=== PATIENT | male | born 1950 | race Caucasian/White ===

== ENCOUNTER 2017-06-13 12:30 | Inpatient (IN) ==
[2017-06-13] MEDS ORDERED: D5% in Water 1,000 ML IVC PRN (22:35)
[2017-06-13] MEDS ORDERED: *HR* Dextrose 50 % in Water (Syg) 50 ML SYRINGE IVP PRN (22:35)
[2017-06-13] MEDS ORDERED: Dextrose Gel 15 GM/37.5 ML TUBE PO PRN ×2 (22:35)
[2017-06-14 05:30] LABS: Basophils % 0.3 %; Eosinophils # 0.3 K/mcL (0.0-0.6); Eosinophils % 4.5 %; Hematocrit 44.7 % (37.5-50.1); Hemoglobin 14.8 g/dL (12.9-16.9); Immature Granulocytes % 0.5 % (0-4); Lymphocytes # 0.9 K/mcL (0.6-4.6); Lymphocytes % 15.6 %; Mean Corpuscular HGB Conc 33.1 g/dL (31.6-35.5); Mean Corpuscular Hemoglobin 31.9 pg (28.0-33.3); Mean Corpuscular Volume 96.3 fL (83.0-100.0); Mean Platelet Volume 9.5 fL (9.4-12.4); Monocytes # 0.6 K/mcL (0.0-1.3); Monocytes % 10.9 %; Neutrophils # 3.9 K/mcL (1.6-8.9); Platelet Count 204 K/mcL (140-400); Red Blood Count 4.64 M/mcL (4.19-5.50); Red Cell Distribution Width 15.7 % (11.5-14.5); Segmented Neutrophils % 68.2 %
[2017-06-14 05:35] LABS: INR 1.9; Prothrombin Time 20.4 Seconds (9.4-12.1)
[2017-06-14 05:47] LABS: BUN/Creatinine Ratio 22 (6-26); Blood Urea Nitrogen 28 mg/dL (8-23); Calcium 8.8 mg/dL (8.6-10.3); Carbon Dioxide 26 mEq/L (23-29); Chloride 101 mEq/L (98-107); Glucose 102 mg/dL (70-105); Osmolality,Calculated 282 (280-300); Sodium 133 mEq/L (136-145); eGFR For African Americans > 60 (> 60); eGFR For Non-African Americans 57 (> 60)
[2017-06-14] MEDS: Insulin LISPRO 300 UNITS/3 ML VIAL SQ SCH ×4 (08:13→21:37)
[2017-06-14] MEDS: Spironolactone 25 MG TABLET PO SCH (11:03)
[2017-06-14] MEDS: Furosemide 40 MG TABLET PO SCH ×2 (11:03→21:36)
[2017-06-14] MEDS: *HR* Metformin 500 MG TABLET PO SCH ×2 (11:03→18:46)
[2017-06-14] MEDS: Cholecalciferol (D-3) 1,000 UNIT TABLET PO SCH (11:03)
[2017-06-14] MEDS: BETAXOLOL 0.25% OP SCH (11:04)
[2017-06-14] MEDS: Beclomethasone 80mcg MDI IH SCH ×2 (11:04→21:37)
--- NOTE | 2017-06-14 15:52 | Internal Med History&Physical ---
Date of Encounter: 06/14/17 Time of Encounter: 15:46 Assessment and Plan (1) Physical deconditioning Current visit: Yes Status: Acute PT/OT eval and treat. will follow progress. (2) CHF (congestive heart failure) Current visit: Yes Status: Acute echo on 11/21/14 showed LVEF of 15-20%. continue O2 per NC as needed. continue current meds, monitor for decompensation. stable at this time. Qualifiers: Heart failure type: systolic Heart failure chronicity: acute Qualified Code(s): I50.21 - Acute systolic (congestive) heart failure (3) CKD (chronic kidney disease) stage 3, GFR 30-59 ml/min Current visit: Yes Status: Chronic monitor labs and avoid nephrotoxins. (4) Atrial fibrillation Current visit: Yes Status: Chronic rate and rythm stable. has pacemaker/AICD, replaced on 05/18/17. continue coumadin. will monitor INR> Qualifiers: Atrial fibrillation type: chronic Qualified Code(s): I48.2 - Chronic atrial fibrillation (5) Presence of cardiac pacemaker Current visit: Yes Status: Chronic replaced on 05/18/17 when AV node ablation was performed. (6) HTN (hypertension) Current visit: Yes Status: Chronic stable and controlled with current meds. monitor BP. Qualifiers: Hypertension type: essential hypertension Qualified Code(s): I10 - Essential (primary) hypertension (7) Diabetes mellitus type II, uncontrolled Current visit: Yes Status: Acute continue metformin and insulin. monitor FSBS. Qualifiers: Diabetes mellitus alf insulin use: without terminal carman use Diabetes mellitus complication status: without complication Qualified Code(s): E11.65 - Type 2 diabetes mellitus with hyperglycemia Internal Medicine - H&P: HPI Admitted From: Intrahospital Transfer Plans for Post Hospital Care: Home History of present illness: Mr. Neves is a 67 year old male admitted to rehab unit from [facility] for deconditioning after CHF exacerbation 2 weeks post ablation. PMHx of a fib, cardiomyopathy, optic atrophy, CHF, diabetes, hyperlipidemia , hypertension, kidney stones, CKD and thyroid disease. denies SOB or chest pain. no other complaints at this time. 2 weeks [address] followed by Dr Mandujano for cardiology. EF 15-20%. has pacemaker/AICD. plans to discharge to assisted living facility. Past Med Surg Social Fam HX - Past Medical History Medical history: atrial fibrillation, cardiomyopathy, CHF, diabetes, hyperlipidemia, hypertension, kidney stones, renal disease, thyroid disease Psychiatric history: no psych history - Past Surgical History Surgical History: pacemaker/AICD - Social History Smoking Status: Never smoker Smokeless Tobacco Status: No Alcohol use: occasionally Drug use: none - Family History Mother Adopted: No Family Member Ethnicity: Non- Living Status: Age at : 85 Cause of : IA Hx Family Cardiac Disorders: Yes Hx Family Respiratory Disorders: No Hx Family Cancer: No Hx Family GI Disorders: No Hx Family Endocrine Disorder: No Hx Family Neuromuscular Disorders: No Hx Family Neurologic Disorders: Yes (Alzheimer's disease) Hx Family HEENT Disorders: No Hx Family Autoimmune Disorders: Yes Father Family Member Ethnicity: Non- Living Status: Age at : 84 Cause of : Dementia Hx Family Cardiac Disorders: Yes (CVA, IA) Hx Family Respiratory Disorders: No Hx Family Cancer: No Hx Family GI Disorders: No Hx Family Endocrine Disorder: Yes Hx Family Neuromuscular Disorders: No Hx Family Neurologic Disorders: No Hx Family HEENT Disorders: Yes Hx Family Autoimmune Disorders: No Internal Medicine - H&P: Meds Albuterol Sulfate [Albuterol Inhaler] 2 puff IH Q4HR PRN 11/21/14 [History] Allopurinol [Zyloprim] 100 mg PO QPM 11/21/14 [History] Beclomethasone Diprop 80mcg [QVAR 80 mcg] 1 puff IH BIDR 11/21/14 [History] Cyanocobalamin (Vitamin B-12) [Vitamin B12] 1,000 mcg PO TH 11/21/14 [History] Levothyroxine [Synthroid] 112 mcg PO QAM 11/21/14 [History] Spironolactone [Aldactone] 25 mg PO DAILY 11/21/14 [History] Warfarin [Coumadin] 2.5 mg PO QPM 11/21/14 [History] Betaxolol 0.25% [Betoptic S] 1 drop BOTH EYES QAM 04/27/15 [History] Travoprost [Travatan Z] 1 drop BOTH EYES HS 04/27/15 [History] Furosemide [Lasix] 40 mg PO BID #60 04/29/15 [Rx] Cholecalciferol (Vitamin D3) [Vitamin D3] 5,000 unit PO DAILY 05/18/17 [History] Atorvastatin [Lipitor] 40 mg PO QPM 06/04/17 [History] Sacubitril/Valsartan 24/26 mg [Entresto 24 mg-26 mg Tablet] 1 tab PO BID #60 tablet 06/13/17 [Rx] 3 Allergy/AdvReac Type Severity Reaction Status Date / Time aspirin [ASA] Allergy See Verified 06/08/17 09:25 Comments Penicillins Allergy See Verified 06/08/17 09:25 Comments Tetracycline Allergy See Verified 06/08/17 09:25 Comments vancomycin Allergy See Verified 06/08/17 09:25 Comments hydrochlorothiazide AdvReac Rash Verified 06/08/17 09:25 NSAIDS (Non-Steroidal AdvReac See Verified 06/08/17 09:25 Anti-Inflamma Comments All Systems PM: A 10-system review of systems was performed and is negative for pertinent findings except as documented above in the HPI. - Constitutional Constitutional: no chills, no fever(s), no night sweats - EENT Eyes: loss of vision, no change in vision, no discharge, no pain, no photophobia Additional comments: hx of chronic optic atrophy. limited vision. no worse at this time. Ears: no ear discharge, no ear pain, no tinnitus Nose, mouth and throat: no dysphagia, no nasal discharge, no neck pain, no sore throat - Cardiovascular Cardiovascular ROS IM: no chest pain, no diaphoresis, no dyspnea, no lightheadedness, no palpitations, no syncope - Respiratory Respiratory: no cough, no dyspnea, no wheezing, no excessive phlegm production - Gastrointestinal Gastrointestinal: no abdominal pain, no diarrhea, no hematemesis, no hematochezia, no melena, no nausea, no vomiting - Musculoskeletal Musculoskeletal ROS IM: no numbness, no tingling - Integumentary Integumentary IM: no rash, no unusual bruising - Neurological Neurological ROS: no confusion, no convulsions, no focal weakness, no numbness, no tingling, no tremor(s) - Hematologic/Lymphatic Hematologic/Lymphatic: no easy bruising - Constitutional Vitals: Temp Pulse Resp BP Pulse Ox 97.8 F 71 14 90/65 97 06/14/17 08:00 06/14/17 12:00 06/14/17 12:00 06/14/17 12:00 06/14/17 12:00 General appearance: Present: A&O X 3, pleasant, no acute distress, answers questions appropriately - Head Head exam: Present: atraumatic, normocephalic - Eye Eye exam: Present: PERRL, conjuntiva pink, sclera anicteric Pupils: Present: PERRL - Neck Neck exam general surgery: Present: supple, trachea midline. Absent: lymphadenopathy - Respiratory Respiratory exam: Present: CTAB. Absent: accessory muscle use, rales, rhonchi, wheezes - Cardiovascular Cardiovascular exam: Present: RRR, +S1, +S2. Absent: diastolic murmur, gallop, rubs, systolic murmur - GI/Abdominal GI/Abdominal exam: Present: normal bowel sounds, soft, no peritoneal signs. Absent: distended, tenderness - Extremities Exam Extremities exam: Present: warm, radial pulses palpable and symmetrical. Absent : calf tenderness, cyanotic, pedal edema - Neurological Exam Neurological exam: Present: CN II-XII intact, oriented X3, no focal deficits. Absent: pronater drift, facial droop, speech deficit - Skin Skin exam: Present: dry, intact Internal Med - H&P Results - Labs CBC & Chem 7: 06/14/17 05:15 06/14/17 05:15 Labs: Short CBC 06/14/17 Range/Units 05:15 WBC 5.8 (4.3-11.1) K/mcL Hgb 14.8 (12.9-16.9) g/dL Hct 44.7 (37.5-50.1) % Plt Count 204 (140-400) K/mcL Neutrophils # 3.9 (1.6-8.9) K/mcL BMP 06/14/17 05:15 Sodium 133 L Potassium 4.0 Chloride 101 Carbon Dioxide 26 BUN 28 H Creatinine 1.26 Glucose 102 Calcium 8.8
[2017-06-14] MEDS: SACUBITRIL/VALSARTAN 24/26 MG TABLET PO SCH ×2 (18:46→21:36)
[2017-06-14] MEDS: Latanoprost 2.5 ML BOTTLE BOTH EYES SCH (21:36)
[2017-06-14] MEDS: *HR* Warfarin 2.5 MG TABLET PO SCH (22:45)
[2017-06-15 06:56] LABS: INR 1.9; Prothrombin Time 20.3 Seconds (9.4-12.1)
[2017-06-15] MEDS: Insulin LISPRO 300 UNITS/3 ML VIAL SQ SCH ×4 (08:04→20:56)
[2017-06-15] MEDS: Furosemide 40 MG TABLET PO SCH ×2 (09:18→21:15)
[2017-06-15] MEDS: Beclomethasone 80mcg MDI IH SCH ×2 (09:19→21:16)
[2017-06-15] MEDS: Spironolactone 25 MG TABLET PO SCH (09:19)
[2017-06-15] MEDS: Cholecalciferol (D-3) 1,000 UNIT TABLET PO SCH (09:19)
[2017-06-15] MEDS: *HR* Metformin 500 MG TABLET PO SCH ×2 (09:19→16:53)
[2017-06-15] MEDS: SACUBITRIL/VALSARTAN 24/26 MG TABLET PO SCH ×2 (09:20→21:15)
[2017-06-15] MEDS: BETAXOLOL 0.25% OP SCH (09:21)
[2017-06-15] MEDS: Cyanocobalamin (B-12) 1,000 MCG TABLET PO SCH (09:27)
--- NOTE | 2017-06-15 14:03 | Internal Med Progress Note ---
Date of Encounter: 06/15/17 Time of Encounter: 14:00 - Assessment and plan (1) Physical deconditioning Current Visit: Yes Status: Acute Assessment and plan: continue PT/OT as scheduled. will follow progress. (2) CHF (congestive heart failure) Current Visit: Yes Status: Acute Assessment and plan: continue current meds. stable at this time. Qualifiers: Heart failure type: systolic Heart failure chronicity: acute Qualified Code(s): I50.21 - Acute systolic (congestive) heart failure (3) CKD (chronic kidney disease) stage 3, GFR 30-59 ml/min Current Visit: Yes Status: Chronic Assessment and plan: monitor labs. (4) Atrial fibrillation Current Visit: Yes Status: Chronic Assessment and plan: rate and rhythm controlled. has pacemaker. Qualifiers: Atrial fibrillation type: chronic Qualified Code(s): I48.2 - Chronic atrial fibrillation (5) Presence of cardiac pacemaker Current Visit: Yes Status: Chronic Assessment and plan: monitor (6) HTN (hypertension) Current Visit: Yes Status: Chronic Assessment and plan: controlled with current meds. monitor BP. Qualifiers: Hypertension type: essential hypertension Qualified Code(s): I10 - Essential (primary) hypertension - Time Spent With Patient less than 15 minutes - Subjective Interval history: participating in therapy. ambulating in hallway with walker with PT. denies SOB, wearing O2, maintaining sats of 96% with 2 liters. denies chest pain. bowel movement this am. - Constitutional Vitals: Temp Pulse Resp BP Pulse Ox 97.7 F 79 16 93/57 96 06/15/17 07:15 06/15/17 07:15 06/15/17 07:15 06/15/17 07:15 06/15/17 07:15 General appearance: Present: A&O X 3, pleasant, no acute distress, answers questions appropriately - Head Head exam: Present: atraumatic, normocephalic - Eye Eye exam: Present: PERRL, conjuntiva pink, sclera anicteric Pupils: Present: PERRL - Neck Neck exam general surgery: Present: supple, trachea midline. Absent: lymphadenopathy - Respiratory Respiratory exam: Present: CTAB. Absent: accessory muscle use, rales, rhonchi, wheezes - Cardiovascular Cardiovascular exam: Present: RRR, +S1, +S2. Absent: diastolic murmur, gallop, rubs, systolic murmur Additional comments: has pacemaker - GI/Abdominal GI/Abdominal exam: Present: normal bowel sounds, soft, no peritoneal signs. Absent: distended, tenderness - Extremities Exam Extremities exam: Present: warm, radial pulses palpable and symmetrical. Absent : calf tenderness, cyanotic, pedal edema - Neurological Exam Neurological exam: Present: CN II-XII intact, oriented X3, no focal deficits. Absent: pronater drift, facial droop, speech deficit - Skin Skin exam: Present: dry, intact Internal Medicine: Result - Labs CBC & Chem 7: 06/14/17 05:15 06/14/17 05:15 - ABG Interpretation ABG results: PT/INR, D-dimer PT 20.3 Seconds (9.4-12.1) H 06/15/17 06:27 Consult Discharge Plan - Plan Referrals: Shayla Bolanos DO [Primary Care Provider] -
[2017-06-15] MEDS: *HR* Warfarin 2.5 MG TABLET PO SCH (16:53)
[2017-06-15] MEDS: Latanoprost 2.5 ML BOTTLE BOTH EYES SCH (21:15)
[2017-06-16 05:41] LABS: INR 1.8; Prothrombin Time 19.4 Seconds (9.4-12.1)
[2017-06-16] MEDS: Insulin LISPRO 300 UNITS/3 ML VIAL SQ SCH ×4 (08:32→20:38)
[2017-06-16] MEDS: Spironolactone 25 MG TABLET PO SCH (11:40)
[2017-06-16] MEDS: Cholecalciferol (D-3) 1,000 UNIT TABLET PO SCH (11:40)
[2017-06-16] MEDS: SACUBITRIL/VALSARTAN 24/26 MG TABLET PO SCH ×2 (11:40→20:41)
[2017-06-16] MEDS: *HR* Metformin 500 MG TABLET PO SCH ×2 (11:40→18:18)
[2017-06-16] MEDS: Furosemide 40 MG TABLET PO SCH ×2 (11:40→20:41)
[2017-06-16] MEDS: BETAXOLOL 0.25% OP SCH (11:42)
[2017-06-16] MEDS: Beclomethasone 80mcg MDI IH SCH ×2 (11:44→20:42)
--- NOTE | 2017-06-16 12:37 | Internal Med Progress Note ---
Date of Encounter: 06/16/17 Time of Encounter: 12:34 - Assessment and plan (1) CHF (congestive heart failure) Current Visit: Yes Status: Acute Assessment and plan: No acute issues. Patient denies any current dyspnea or palpitations. Patient continues to physical therapy has been progressing well. Continues with irregular heart rate due to atrial fibrillation but controlled rate less than 100. We will continue his current medications and plan of care. Qualifiers: Heart failure type: systolic Heart failure chronicity: acute Qualified Code(s): I50.21 - Acute systolic (congestive) heart failure (2) CKD (chronic kidney disease) stage 3, GFR 30-59 ml/min Current Visit: Yes Status: Chronic Assessment and plan: No acute issues. Patient's most recent creatinine was 1.26. We will continue to monitor with serial labs. (3) Diabetes mellitus type II, uncontrolled Current Visit: Yes Status: Acute Assessment and plan: No acute issues. Patient glucose has been well controlled with SSI coverage. We will continue with scheduled medications Qualifiers: Diabetes mellitus detention insulin use: without detention use Diabetes mellitus complication status: without complication Qualified Code(s): E11.65 - Type 2 diabetes mellitus with hyperglycemia - Time Spent With Patient less than 15 minutes - Subjective Interval history: Patient appears Roberto currently denies any shortness of breath was discomforts. Patient denies any palpitations. States that physical therapy has been doing well that he feels like he is progressing well. - Constitutional Vitals: Temp Pulse Resp BP Pulse Ox 97.7 F 80 16 99/69 95 06/16/17 09:00 06/16/17 09:00 06/16/17 09:00 06/16/17 09:00 06/16/17 09:00 General appearance: Present: A&O X 3, pleasant, no acute distress, answers questions appropriately - Head Head exam: Present: atraumatic, normocephalic - Eye Eye exam: Present: PERRL, conjuntiva pink, sclera anicteric Pupils: Present: PERRL - Neck Neck exam general surgery: Present: supple, trachea midline. Absent: lymphadenopathy - Respiratory Respiratory exam: Present: CTAB. Absent: accessory muscle use, rales, rhonchi, wheezes Additional comments: Lungs are clear throughout upper parish and diminished to basilar parish. Respiratory effort appears relaxed. Oximetry greater than 90% on 2 L. - Cardiovascular Cardiovascular exam: Present: RRR, +S1, +S2. Absent: diastolic murmur, gallop, rubs, systolic murmur Additional comments: Noted soft systolic murmur to left sternal border. 04/04 - GI/Abdominal GI/Abdominal exam: Present: normal bowel sounds, soft, no peritoneal signs. Absent: distended, tenderness - Extremities Exam Extremities exam: Present: warm, radial pulses palpable and symmetrical. Absent : calf tenderness, cyanotic, pedal edema - Neurological Exam Neurological exam: Present: CN II-XII intact, oriented X3, no focal deficits. Absent: pronater drift, facial droop, speech deficit - Skin Skin exam: Present: dry, intact Internal Medicine: Result - Labs CBC & Chem 7: 06/14/17 05:15 06/14/17 05:15 - ABG Interpretation ABG results: PT/INR, D-dimer PT 19.4 Seconds (9.4-12.1) H 06/16/17 05:15 Consult Discharge Plan - Plan Referrals: Shayla Bolanos DO [Primary Care Provider] -
[2017-06-16] MEDS: *HR* Warfarin 2.5 MG TABLET PO SCH (18:18)
[2017-06-16] MEDS: Latanoprost 2.5 ML BOTTLE BOTH EYES SCH (20:41)
[2017-06-17 05:20] LABS: INR 1.6; Prothrombin Time 17.9 Seconds (9.4-12.1)
[2017-06-17] MEDS: Insulin LISPRO 300 UNITS/3 ML VIAL SQ SCH ×4 (07:47→21:00)
[2017-06-17] MEDS: Spironolactone 25 MG TABLET PO SCH (07:48)
[2017-06-17] MEDS: *HR* Metformin 500 MG TABLET PO SCH ×2 (07:48→16:47)
[2017-06-17] MEDS: Cholecalciferol (D-3) 1,000 UNIT TABLET PO SCH (07:48)
[2017-06-17] MEDS: SACUBITRIL/VALSARTAN 24/26 MG TABLET PO SCH ×2 (07:48→21:10)
[2017-06-17] MEDS: Furosemide 40 MG TABLET PO SCH ×2 (07:48→21:10)
[2017-06-17] MEDS: BETAXOLOL 0.25% OP SCH (07:51)
[2017-06-17] MEDS: Beclomethasone 80mcg MDI IH SCH ×2 (08:03→21:11)
--- NOTE | 2017-06-17 09:59 | Internal Med Progress Note ---
Date of Encounter: 06/17/17 Time of Encounter: 09:57 - Assessment and plan (1) Acute exacerbation of CHF (congestive heart failure) Current Visit: No Status: Acute Assessment and plan: Acute exacerbation of systolic heart Failure. His EF per record is very low around 15-20 % . He is on lasix clinically looks better his Lasix needed to be decreased due to low BP last night . I'll need to continue to monitor and if possible if his Blood pressure tolerates a small dose of Nate could be added . At the present time he si clinically stable and denies any acute issues or SOB Qualifiers: Heart failure type: systolic Qualified Code(s): I50.23 - Acute on chronic systolic (congestive) heart failure (2) Cardiomyopathy Current Visit: No Status: Chronic Assessment and plan: Same as above . Adjust his meds if he can tolerate Qualifiers: Cardiomyopathy type: other Qualified Code(s): I42.8 - Other cardiomyopathies (3) CKD (chronic kidney disease) stage 3, GFR 30-59 ml/min Current Visit: Yes Status: Resolved Assessment and plan: last labs seems to be within normal range needs to continue to followup his renal function (4) Atrial fibrillation Current Visit: Yes Status: Chronic Assessment and plan: has pacemaker rate is stable .on warfarin INR is low increase his dose Qualifiers: Atrial fibrillation type: chronic Qualified Code(s): I48.2 - Chronic atrial fibrillation - Subjective Interval history: no acute issues today breathing is some what baseline no dizzyness no Chest pain nausea or vomting or any other complains . His BP had been running some what low lately on lasix and Aldactone only - Constitutional Vitals: Temp Pulse Resp BP Pulse Ox 97.8 F 79 18 106/66 95 06/17/17 07:23 06/17/17 07:23 06/17/17 07:23 06/17/17 07:23 06/17/17 07:23 General appearance: Present: A&O X 3, pleasant, no acute distress, answers questions appropriately - Head Head exam: Present: atraumatic - Eye Eye exam: Present: EOMI, PERRL - Neck Neck exam general surgery: Present: supple Additional comments: no JVD or HJR - Respiratory Respiratory exam: Absent: respiratory distress, rhonchi, wheezes, tachypnea Additional comments: Mild crackles bases both sides otherwise air entry equal both sides - Cardiovascular Cardiovascular exam: Present: irregular rhythm, +S1, +S2, systolic murmur. Absent: JVD Additional comments: soft systolic mummer - GI/Abdominal GI/Abdominal exam: Present: normal bowel sounds, soft. Absent: distended, firm , guarding, mass, tenderness Additional comments: obese - Extremities Exam Extremities exam: Present: pedal edema Additional comments: + both sides - Neurological Exam Neurological exam: Present: CN II-XII intact, oriented X3, no focal deficits. Absent: facial droop, speech deficit Internal Medicine: Result - Labs CBC & Chem 7: 06/14/17 05:15 06/14/17 05:15 - ABG Interpretation ABG results: PT/INR, D-dimer PT 17.9 Seconds (9.4-12.1) H 06/17/17 05:03 Consult Discharge Plan - Plan Referrals: Shayla Bolanos DO [Primary Care Provider] -
[2017-06-17] MEDS ORDERED: *HR* Warfarin 2.5 MG TABLET PO SCH (10:06)
[2017-06-17] MEDS: Latanoprost 2.5 ML BOTTLE BOTH EYES SCH (21:11)
[2017-06-18 05:22] LABS: INR 1.8; Prothrombin Time 19.8 Seconds (9.4-12.1)
[2017-06-18 05:33] LABS: BUN/Creatinine Ratio 19 (6-26); Blood Urea Nitrogen 24 mg/dL (8-23); Calcium 8.7 mg/dL (8.6-10.3); Carbon Dioxide 21 mEq/L (23-29); Chloride 102 mEq/L (98-107); Glucose 100 mg/dL (70-105); Osmolality,Calculated 280 (280-300); Potassium 4.2 mEq/L (3.5-5.1); Sodium 133 mEq/L (136-145); eGFR For African Americans > 60 (> 60); eGFR For Non-African Americans 57 (> 60)
[2017-06-18] MEDS: Insulin LISPRO 300 UNITS/3 ML VIAL SQ SCH ×4 (07:26→21:22)
[2017-06-18] MEDS: Furosemide 40 MG TABLET PO SCH ×2 (07:28→21:22)
[2017-06-18] MEDS: SACUBITRIL/VALSARTAN 24/26 MG TABLET PO SCH ×2 (07:28→21:23)
[2017-06-18] MEDS: *HR* Metformin 500 MG TABLET PO SCH ×2 (07:28→16:55)
[2017-06-18] MEDS: Spironolactone 25 MG TABLET PO SCH (07:28)
[2017-06-18] MEDS: Cholecalciferol (D-3) 1,000 UNIT TABLET PO SCH (07:28)
[2017-06-18] MEDS: BETAXOLOL 0.25% OP SCH (07:28)
--- NOTE | 2017-06-18 09:02 | Internal Med Progress Note ---
Date of Encounter: 06/18/17 Time of Encounter: 09:01 - Assessment and plan (1) Acute exacerbation of CHF (congestive heart failure) Current Visit: No Status: Acute Assessment and plan: Doing better he has lost about 2 KG since his admission . BP is holding better still on BID dose and IVONNE etc continue to adjust meds as tolerated. Overall doing better . As his weight decreases consider decreasing his Lasix and adding small dose of beta blockers if he can tolerate Qualifiers: Heart failure type: systolic Qualified Code(s): I50.23 - Acute on chronic systolic (congestive) heart failure (2) Cardiomyopathy Current Visit: No Status: Acute Assessment and plan: As above on multiple meds His creatinine has decreased little bit . Continue present meds Qualifiers: Cardiomyopathy type: other Qualified Code(s): I42.8 - Other cardiomyopathies (3) CKD (chronic kidney disease) stage 3, GFR 30-59 ml/min Current Visit: Yes Status: Chronic Assessment and plan: Stable Creatinine is 1.25 improving slowly (4) Atrial fibrillation Current Visit: Yes Status: Chronic Assessment and plan: rate is stable Has a pacemaker and a defibrillator . Warfarin dose was increased needs followup INR improving INR now to 1.8 No change in dose .On 3 mg warfarin Qualifiers: Atrial fibrillation type: chronic Qualified Code(s): I48.2 - Chronic atrial fibrillation - Time Spent With Patient 25 - 35 minutes - Subjective Interval history: He seems to be doing much better then before able to sleep through the night . His breathing is baseline no . He is not dizziness BP seems to be holding better - Constitutional Vitals: Temp Pulse Resp BP Pulse Ox 97.4 F L 79 16 103/43 97 06/18/17 07:45 06/18/17 07:45 06/18/17 07:45 06/18/17 07:45 06/18/17 07:45 General appearance: Present: A&O X 3, pleasant, no acute distress, answers questions appropriately - Head Head exam: Present: atraumatic - Eye Eye exam: Present: EOMI, PERRL - Neck Neck exam general surgery: Absent: tenderness, nuchal rigidity Additional comments: HJR is mildly positive no JVD - Respiratory Respiratory exam: Present: CTAB. Absent: chest wall tenderness, decreased breath sounds, respiratory distress, rhonchi, stridor, wheezes, tachypnea - Cardiovascular Cardiovascular exam: Present: irregular rhythm, +S1, +S2 - GI/Abdominal GI/Abdominal exam: Present: normal bowel sounds, soft. Absent: rebound, rigid Additional comments: obese abdomen - Extremities Exam Extremities exam: Absent: pedal edema, tenderness - Neurological Exam Neurological exam: Present: alert, CN II-XII intact, oriented X3, no focal deficits, strengths equal and symetr throughout. Absent: facial droop, speech deficit Internal Medicine: Result - Labs CBC & Chem 7: 06/14/17 05:15 06/18/17 04:33 Labs: BMP 06/18/17 04:33 Sodium 133 L Potassium 4.2 Chloride 102 Carbon Dioxide 21 L BUN 24 H Creatinine 1.25 Glucose 100 Calcium 8.7 - ABG Interpretation ABG results: PT/INR, D-dimer PT 19.8 Seconds (9.4-12.1) H 06/18/17 04:33 Consult Discharge Plan - Plan Referrals: Shayla Bolanos DO [Primary Care Provider] -
[2017-06-18] MEDS: Beclomethasone 80mcg MDI IH SCH ×2 (11:40→21:22)
[2017-06-18] MEDS ORDERED: Sennosides 8.6 MG TABLET PO PRN (15:56)
[2017-06-18] MEDS: *HR* Warfarin 3 MG TABLET PO SCH (16:55)
[2017-06-18] MEDS: Latanoprost 2.5 ML BOTTLE BOTH EYES SCH (21:21)
[2017-06-19 05:15] LABS: INR 1.9; Prothrombin Time 20.3 Seconds (9.4-12.1)
[2017-06-19] MEDS: Insulin LISPRO 300 UNITS/3 ML VIAL SQ SCH ×4 (07:45→20:37)
--- NOTE | 2017-06-19 10:07 | Internal Med Progress Note ---
Date of Encounter: 06/19/17 Time of Encounter: 10:05 - Assessment and plan (1) CHF (congestive heart failure) Current Visit: Yes Status: Acute Assessment and plan: No acute issues. Patient denies any current dyspnea or palpitations. Patient continues to physical therapy has been progressing well. Continues with irregular heart rate due to atrial fibrillation but controlled rate less than 100. We will continue his current medications and plan of care. Qualifiers: Heart failure type: systolic Heart failure chronicity: acute Qualified Code(s): I50.21 - Acute systolic (congestive) heart failure (2) CKD (chronic kidney disease) stage 3, GFR 30-59 ml/min Current Visit: Yes Status: Chronic Assessment and plan: No acute issues. Patient's most recent creatinine was 1.25. We will continue to monitor with serial labs. (3) Diabetes mellitus type II, uncontrolled Current Visit: Yes Status: Acute Assessment and plan: No acute issues. Patient glucose has been well controlled with SSI coverage. We will continue with scheduled medications Qualifiers: Diabetes mellitus jail insulin use: without jail use Diabetes mellitus complication status: without complication Qualified Code(s): E11.65 - Type 2 diabetes mellitus with hyperglycemia - Time Spent With Patient less than 15 minutes - Subjective Interval history: Patient appears relaxed and currently denies any shortness of breath was discomforts. Patient denies any palpitations. States that physical therapy has been doing well that he feels like he is progressing well. - Constitutional Vitals: Temp Pulse Resp BP Pulse Ox 98.4 F 86 18 110/73 94 06/19/17 07:04 06/19/17 07:04 06/19/17 07:04 06/19/17 07:04 06/19/17 07:04 General appearance: Present: A&O X 3, pleasant, no acute distress, answers questions appropriately - Head Head exam: Present: atraumatic, normocephalic - Eye Eye exam: Present: PERRL, conjuntiva pink, sclera anicteric Pupils: Present: PERRL - Neck Neck exam general surgery: Present: supple, trachea midline. Absent: lymphadenopathy - Respiratory Respiratory exam: Present: CTAB. Absent: accessory muscle use, rales, rhonchi, wheezes - Cardiovascular Cardiovascular exam: Present: RRR, +S1, +S2. Absent: diastolic murmur, gallop, rubs, systolic murmur - GI/Abdominal GI/Abdominal exam: Present: normal bowel sounds, soft, no peritoneal signs. Absent: distended, tenderness - Extremities Exam Extremities exam: Present: warm, radial pulses palpable and symmetrical. Absent : calf tenderness, cyanotic, pedal edema - Neurological Exam Neurological exam: Present: CN II-XII intact, oriented X3, no focal deficits. Absent: pronater drift, facial droop, speech deficit - Skin Skin exam: Present: dry, intact Internal Medicine: Result - Labs CBC & Chem 7: 06/14/17 05:15 06/18/17 04:33 - ABG Interpretation ABG results: PT/INR, D-dimer PT 20.3 Seconds (9.4-12.1) H 06/19/17 04:50 Consult Discharge Plan - Plan Referrals: Shayla Bolanos DO [Primary Care Provider] -
[2017-06-19] MEDS: Cholecalciferol (D-3) 1,000 UNIT TABLET PO SCH (10:28)
[2017-06-19] MEDS: SACUBITRIL/VALSARTAN 24/26 MG TABLET PO SCH ×2 (10:28→20:13)
[2017-06-19] MEDS: *HR* Metformin 500 MG TABLET PO SCH ×2 (10:29→19:09)
[2017-06-19] MEDS: Spironolactone 25 MG TABLET PO SCH (10:29)
[2017-06-19] MEDS: Furosemide 40 MG TABLET PO SCH ×2 (10:29→20:13)
[2017-06-19] MEDS: Beclomethasone 80mcg MDI IH SCH ×2 (12:28→20:14)
[2017-06-19] MEDS: BETAXOLOL 0.25% OP SCH (12:31)
[2017-06-19] MEDS: Latanoprost 2.5 ML BOTTLE BOTH EYES SCH (12:31)
[2017-06-19] MEDS: *HR* Warfarin 3 MG TABLET PO SCH (19:09)
[2017-06-20 05:43] LABS: Hematocrit 47.4 % (37.5-50.1); Hemoglobin 15.8 g/dL (12.9-16.9); Mean Corpuscular HGB Conc 33.3 g/dL (31.6-35.5); Mean Corpuscular Hemoglobin 32.4 pg (28.0-33.3); Mean Corpuscular Volume 97.1 fL (83.0-100.0); Mean Platelet Volume 9.4 fL (9.4-12.4); Platelet Count 221 K/mcL (140-400); Red Blood Count 4.88 M/mcL (4.19-5.50); Red Cell Distribution Width 15.6 % (11.5-14.5)
[2017-06-20 05:45] LABS: Prothrombin Time 21.3 Seconds (9.4-12.1)
[2017-06-20 05:59] LABS: Alanine Aminotransferase 21 Units/L (7-52); Albumin 3.8 g/dL (3.5-5.7); Albumin/Globulin Ratio 1.6 (1.1-2.2); Alkaline Phosphatase 50 Units/L (34-104); Aspartate Amino Transferase 17 Units/L (13-39); BUN/Creatinine Ratio 18 (6-26); Bilirubin,Total 3.1 mg/dL (0.3-1.0); Blood Urea Nitrogen 24 mg/dL (8-23); Calcium 9.1 mg/dL (8.6-10.3); Carbon Dioxide 26 mEq/L (23-29); Chloride 103 mEq/L (98-107); Globulin 2.4 g/dL (2.4-3.5); Glucose 106 mg/dL (70-105); Osmolality,Calculated 288 (280-300); Potassium 4.2 mEq/L (3.5-5.1); Sodium 137 mEq/L (136-145); Total Protein 6.2 g/dL (6.4-8.9); eGFR For African Americans > 60 (> 60); eGFR For Non-African Americans 52 (> 60)
[2017-06-20] MEDS: Insulin LISPRO 300 UNITS/3 ML VIAL SQ SCH ×4 (07:51→20:29)
[2017-06-20] MEDS: *HR* Metformin 500 MG TABLET PO SCH ×2 (08:43→17:03)
[2017-06-20] MEDS: Furosemide 40 MG TABLET PO SCH ×2 (08:44→20:22)
[2017-06-20] MEDS: Spironolactone 25 MG TABLET PO SCH (08:44)
[2017-06-20] MEDS: SACUBITRIL/VALSARTAN 24/26 MG TABLET PO SCH ×2 (08:44→20:22)
[2017-06-20] MEDS: Cholecalciferol (D-3) 1,000 UNIT TABLET PO SCH (08:44)
[2017-06-20] MEDS: BETAXOLOL 0.25% OP SCH (08:47)
[2017-06-20] MEDS: Beclomethasone 80mcg MDI IH SCH ×2 (11:38→20:23)
--- NOTE | 2017-06-20 11:47 | Internal Med Progress Note ---
Date of Encounter: 06/20/17 Time of Encounter: 11:46 - Assessment and plan (1) CHF (congestive heart failure) Current Visit: Yes Status: Acute Assessment and plan: No acute issues. Patient denies any current dyspnea or palpitations. Patient continues to physical therapy has been progressing well. Continues with irregular heart rate due to atrial fibrillation but controlled rate less than 100. Patient's surgical incision for AICD appears well-healed. We will continue his current medications and plan of care. Qualifiers: Heart failure type: systolic Heart failure chronicity: acute Qualified Code(s): I50.21 - Acute systolic (congestive) heart failure (2) CKD (chronic kidney disease) stage 3, GFR 30-59 ml/min Current Visit: Yes Status: Chronic Assessment and plan: No acute issues. Patient's most recent creatinine was 1.25. We will continue to monitor with serial labs. (3) Diabetes mellitus type II, uncontrolled Current Visit: Yes Status: Acute Assessment and plan: No acute issues. Patient glucose has been well controlled with SSI coverage. We will continue with scheduled medications Qualifiers: Diabetes mellitus retirement insulin use: without long term care phlebotomist use Diabetes mellitus complication status: without complication Qualified Code(s): E11.65 - Type 2 diabetes mellitus with hyperglycemia - Time Spent With Patient less than 15 minutes - Subjective Interval history: Patient appears relaxed and currently denies any shortness of breath was discomforts. Patient denies any palpitations. States that physical therapy has been doing well that he feels like he is progressing well. - Constitutional Vitals: Temp Pulse Resp BP Pulse Ox 98.2 F 79 20 85/56 96 06/20/17 07:08 06/20/17 07:08 06/20/17 07:08 06/20/17 07:08 06/20/17 07:08 General appearance: Present: A&O X 3, pleasant, no acute distress, answers questions appropriately - Head Head exam: Present: atraumatic, normocephalic - Eye Eye exam: Present: PERRL, conjuntiva pink, sclera anicteric Pupils: Present: PERRL - Neck Neck exam general surgery: Present: supple, trachea midline. Absent: lymphadenopathy - Respiratory Respiratory exam: Present: CTAB. Absent: accessory muscle use, rales, rhonchi, wheezes - Cardiovascular Cardiovascular exam: Present: RRR, +S1, +S2. Absent: diastolic murmur, gallop, rubs, systolic murmur - GI/Abdominal GI/Abdominal exam: Present: normal bowel sounds, soft, no peritoneal signs. Absent: distended, tenderness - Extremities Exam Extremities exam: Present: warm, radial pulses palpable and symmetrical. Absent : calf tenderness, cyanotic, pedal edema - Neurological Exam Neurological exam: Present: CN II-XII intact, oriented X3, no focal deficits. Absent: pronater drift, facial droop, speech deficit - Skin Skin exam: Present: dry, intact Internal Medicine: Result - Labs CBC & Chem 7: 06/20/17 05:30 06/20/17 05:30 Labs: Short CBC 06/20/17 Range/Units 05:30 WBC 5.6 (4.3-11.1) K/mcL Hgb 15.8 (12.9-16.9) g/dL Hct 47.4 (37.5-50.1) % Plt Count 221 (140-400) K/mcL BMP 06/20/17 05:30 Sodium 137 Potassium 4.2 Chloride 103 Carbon Dioxide 26 BUN 24 H Creatinine 1.37 H Glucose 106 H Calcium 9.1 Liver Function 06/20/17 Range/Units 05:30 Total Bilirubin 3.1 H (0.3-1.0) mg/dL AST 17 (13-39) Units/L ALT 21 (7-52) Units/L Alkaline Phosphatase 50 (34-104) Units/L Albumin 3.8 (3.5-5.7) g/dL - ABG Interpretation ABG results: PT/INR, D-dimer PT 21.3 Seconds (9.4-12.1) H 06/20/17 05:30 Consult Discharge Plan - Plan Referrals: Shayla Bolanos DO [Primary Care Provider] -
[2017-06-20] MEDS: *HR* Warfarin 3 MG TABLET PO SCH (17:03)
[2017-06-20] MEDS: Latanoprost 2.5 ML BOTTLE BOTH EYES SCH (20:23)
[2017-06-21 05:13] LABS: Prothrombin Time 21.7 Seconds (9.4-12.1)
[2017-06-21] MEDS: Spironolactone 25 MG TABLET PO SCH (08:19)
[2017-06-21] MEDS: *HR* Metformin 500 MG TABLET PO SCH ×2 (08:19→17:45)
[2017-06-21] MEDS: Cholecalciferol (D-3) 1,000 UNIT TABLET PO SCH (08:19)
[2017-06-21] MEDS: SACUBITRIL/VALSARTAN 24/26 MG TABLET PO SCH ×2 (08:19→20:33)
[2017-06-21] MEDS: Beclomethasone 80mcg MDI IH SCH ×2 (08:20→20:34)
[2017-06-21] MEDS: Insulin LISPRO 300 UNITS/3 ML VIAL SQ SCH ×3 (08:20→22:07)
[2017-06-21] MEDS: Furosemide 40 MG TABLET PO SCH ×2 (08:20→20:33)
[2017-06-21] MEDS: BETAXOLOL 0.25% OP SCH (08:20)
--- NOTE | 2017-06-21 10:26 | Internal Med Progress Note ---
Date of Encounter: 06/21/17 Time of Encounter: 10:24 - Assessment and plan (1) CHF (congestive heart failure) Current Visit: Yes Status: Acute Assessment and plan: No acute issues. Patient denies any current dyspnea or palpitations. Patient continues to physical therapy has been progressing well. Continues with irregular heart rate due to atrial fibrillation but controlled rate less than 100. Patient's surgical incision for AICD appears well-healed. Patients weights remains stable. Continues to progress with PT/OT. We will continue his current medications and plan of care. Qualifiers: Heart failure type: systolic Heart failure chronicity: acute Qualified Code(s): I50.21 - Acute systolic (congestive) heart failure (2) CKD (chronic kidney disease) stage 3, GFR 30-59 ml/min Current Visit: Yes Status: Chronic Assessment and plan: No acute issues. Patient's most recent creatinine was 1. Patient continues on scheduled diuretic. We will continue to monitor with serial labs. (3) Diabetes mellitus type II, uncontrolled Current Visit: Yes Status: Acute Assessment and plan: No acute issues. Patient glucose has been well controlled with SSI coverage. Most readings have been <200. We will continue with scheduled medications Qualifiers: Diabetes mellitus manager terminal insulin use: without manager terminal use Diabetes mellitus complication status: without complication Qualified Code(s): E11.65 - Type 2 diabetes mellitus with hyperglycemia - Time Spent With Patient less than 15 minutes - Subjective Interval history: Patient appears relaxed and currently denies any shortness of breath was discomforts. Patient denies any palpitations. States that physical therapy has been doing well that he feels like he is progressing well. - Constitutional Vitals: Temp Pulse Resp BP Pulse Ox 98.1 F 55 16 101/68 95 06/20/17 19:02 06/20/17 19:02 06/20/17 19:02 06/20/17 19:02 06/20/17 19:02 General appearance: Present: A&O X 3, pleasant, no acute distress, answers questions appropriately - Head Head exam: Present: atraumatic, normocephalic - Eye Eye exam: Present: PERRL, conjuntiva pink, sclera anicteric Pupils: Present: PERRL - Neck Neck exam general surgery: Present: supple, trachea midline. Absent: lymphadenopathy - Respiratory Respiratory exam: Present: CTAB. Absent: accessory muscle use, rales, rhonchi, wheezes Additional comments: diminished breath sounds to bases, but otherwise CTA - Cardiovascular Cardiovascular exam: Present: RRR, +S1, +S2. Absent: diastolic murmur, gallop, rubs, systolic murmur - GI/Abdominal GI/Abdominal exam: Present: normal bowel sounds, soft, no peritoneal signs. Absent: distended, tenderness - Extremities Exam Extremities exam: Present: warm, radial pulses palpable and symmetrical. Absent : calf tenderness, cyanotic, pedal edema Additional comments: non-pitting pedal edema - Neurological Exam Neurological exam: Present: CN II-XII intact, oriented X3, no focal deficits. Absent: pronater drift, facial droop, speech deficit - Skin Skin exam: Present: dry, intact Internal Medicine: Result - Labs CBC & Chem 7: 06/20/17 05:30 06/20/17 05:30 - ABG Interpretation ABG results: PT/INR, D-dimer PT 21.7 Seconds (9.4-12.1) H 06/21/17 04:55 Consult Discharge Plan - Plan Referrals: Shayla Bolanos DO [Primary Care Provider] -
[2017-06-21] MEDS: *HR* Warfarin 3 MG TABLET PO SCH (17:45)
[2017-06-21] MEDS: Latanoprost 2.5 ML BOTTLE BOTH EYES SCH (20:34)
[2017-06-22 08:11] LABS: INR 1.9; Prothrombin Time 21.2 Seconds (9.4-12.1)
[2017-06-22] MEDS: Insulin LISPRO 300 UNITS/3 ML VIAL SQ SCH ×3 (08:50→21:38)
[2017-06-22] MEDS: Cholecalciferol (D-3) 1,000 UNIT TABLET PO SCH (08:57)
[2017-06-22] MEDS: *HR* Metformin 500 MG TABLET PO SCH ×2 (08:57→18:16)
[2017-06-22] MEDS: Spironolactone 25 MG TABLET PO SCH (08:57)
[2017-06-22] MEDS: SACUBITRIL/VALSARTAN 24/26 MG TABLET PO SCH ×2 (08:57→21:36)
[2017-06-22] MEDS: Furosemide 40 MG TABLET PO SCH ×2 (08:58→21:36)
[2017-06-22] MEDS: BETAXOLOL 0.25% OP SCH (09:00)
[2017-06-22] MEDS: Cyanocobalamin (B-12) 1,000 MCG TABLET PO SCH (09:32)
[2017-06-22] MEDS: Beclomethasone 80mcg MDI IH SCH ×3 (11:07→21:37)
--- NOTE | 2017-06-22 14:08 | Internal Med Progress Note ---
Date of Encounter: 06/22/17 Time of Encounter: 14:06 - Assessment and plan (1) CHF (congestive heart failure) Current Visit: Yes Status: Acute Assessment and plan: No acute issues. Patient denies any current dyspnea or palpitations. Patient continues to physical therapy has been progressing well. Continues with irregular heart rate due to atrial fibrillation but controlled rate less than 100. Patient's surgical incision for AICD appears well-healed. Patients weights remains stable. Continues to progress with PT/OT. We will continue his current medications and plan of care. Patient being prepared for DC to [facility] in morning. Qualifiers: Heart failure type: systolic Heart failure chronicity: acute Qualified Code(s): I50.21 - Acute systolic (congestive) heart failure (2) CKD (chronic kidney disease) stage 3, GFR 30-59 ml/min Current Visit: Yes Status: Chronic Assessment and plan: No acute issues. . Patient continues on scheduled diuretic. We will continue to monitor with serial labs. (3) Diabetes mellitus type II, uncontrolled Current Visit: Yes Status: Acute Assessment and plan: No acute issues. Patient glucose has been well controlled with SSI coverage. Most readings have been <200. We will continue with scheduled medications Qualifiers: Diabetes mellitus chcf insulin use: without chcf use Diabetes mellitus complication status: without complication Qualified Code(s): E11.65 - Type 2 diabetes mellitus with hyperglycemia - Time Spent With Patient less than 15 minutes - Subjective Interval history: Patient appears relaxed and currently denies any shortness of breath was discomforts. Patient denies any palpitations. States that physical therapy has been doing well that he feels like he is progressing well. - Constitutional Vitals: Temp Pulse Resp BP Pulse Ox 97.6 F 80 16 99/65 95 06/22/17 07:48 06/22/17 07:48 06/22/17 07:48 06/22/17 09:00 06/22/17 10:37 General appearance: Present: A&O X 3, pleasant, no acute distress, answers questions appropriately - Head Head exam: Present: atraumatic, normocephalic - Eye Eye exam: Present: PERRL, conjuntiva pink, sclera anicteric Pupils: Present: PERRL - Neck Neck exam general surgery: Present: supple, trachea midline. Absent: lymphadenopathy - Respiratory Respiratory exam: Present: CTAB. Absent: accessory muscle use, rales, rhonchi, wheezes Additional comments: diminished breath sounds to [place], otherwise CTA. Resp effort is relaxed. - Cardiovascular Cardiovascular exam: Present: RRR, +S1, +S2. Absent: diastolic murmur, gallop, rubs, systolic murmur - GI/Abdominal GI/Abdominal exam: Present: normal bowel sounds, soft, no peritoneal signs. Absent: distended, tenderness - Extremities Exam Extremities exam: Present: warm, radial pulses palpable and symmetrical. Absent : calf tenderness, cyanotic, pedal edema - Neurological Exam Neurological exam: Present: CN II-XII intact, oriented X3, no focal deficits. 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
[2017-06-22] MEDS: *HR* Warfarin 3 MG TABLET PO SCH (18:16)
[2017-06-22] MEDS: Latanoprost 2.5 ML BOTTLE BOTH EYES SCH (21:37)
[2017-06-23 07:27] LABS: Prothrombin Time 21.3 Seconds (9.4-12.1)
[2017-06-23 08:05] VITALS: BP 111/77
[2017-06-23] MEDS: SACUBITRIL/VALSARTAN 24/26 MG TABLET PO SCH (09:35)
[2017-06-23] MEDS: Furosemide 40 MG TABLET PO SCH (09:35)
[2017-06-23] MEDS: Cholecalciferol (D-3) 1,000 UNIT TABLET PO SCH (09:36)
[2017-06-23] MEDS: BETAXOLOL 0.25% OP SCH (09:36)
[2017-06-23] MEDS: Insulin LISPRO 300 UNITS/3 ML VIAL SQ SCH (09:36)
[2017-06-23] MEDS: Spironolactone 25 MG TABLET PO SCH (09:36)
[2017-06-23] MEDS: *HR* Metformin 500 MG TABLET PO SCH (09:36)
[2017-06-23] MEDS: Beclomethasone 80mcg MDI IH SCH (09:39)
--- NOTE | 2017-06-23 10:16 | Discharge Summary ---
Orders not resulted at time of discharge: Pending orders 06/24/17 04:00 PT/INR [Prothrombin Time INR] [[facility]] AM 0400 Date of Encounter: 06/23/17 Time of Encounter: 10:14 - Discharge Diagnosis (1) CHF (congestive heart failure) Priority: Primary Status: Acute Comments: Patient assessment stable while at facility. Patient to physical therapy and progressed well but continues to have dyspnea on exertion. No complaints chest discomforts or palpitations. Patient continue on home meds Qualifiers: Heart failure type: systolic Heart failure chronicity: acute Qualified Code(s): I50.21 - Acute systolic (congestive) heart failure (2) CKD (chronic kidney disease) stage 3, GFR 30-59 ml/min Priority: Secondary Status: Chronic Comments: No acute issues during his stay have facility. Patient's renal status remained stable (3) Diabetes mellitus type II, uncontrolled Priority: Secondary Status: Acute Comments: No acute issues during stay of facility. Patient's glucose was well-controlled with most readings less than 150. Patient continue with current Qualifiers: Diabetes mellitus fci insulin use: without termite technician use Diabetes mellitus complication status: without complication Qualified Code(s): E11.65 - Type 2 diabetes mellitus with hyperglycemia Hospital course: Mr. Neves is a 67 year old male admitted to rehab unit from [facility] for deconditioning after CHF exacerbation 2 weeks post ablation. PMHx of a fib, cardiomyopathy, optic atrophy, CHF, diabetes, hyperlipidemia , hypertension, kidney stones, CKD and thyroid disease. Patient denies SOB or chest pain, or any other complaints at this time. His 4 weeks ago. He has been followed by Dr Mandujano for cardiology. EF 15-20%. and has pacemaker/AICD. Patient is legally blind Patient has progressed well with physical therapy during his stay of facility. No acute issues occurred during this admission. Discharge discussed with: patient Time spent discussing smoking cessation with patient: 3 to 10 minutes - Time Spent with Patient Total time spent providing and/or coordinating discharge services: Less than 30 minutes - Discharge Medications Home Medications: Albuterol Sulfate [Albuterol Inhaler] 2 puff IH Q4HR PRN 11/21/14 [History] Allopurinol [Zyloprim] 100 mg PO QPM 11/21/14 [History] Beclomethasone Diprop 80mcg [QVAR 80 mcg] 1 puff IH BIDR 11/21/14 [History] Cyanocobalamin (Vitamin B-12) [Vitamin B12] 1,000 mcg PO TH 11/21/14 [History] Levothyroxine [Synthroid] 112 mcg PO QAM 11/21/14 [History] Spironolactone [Aldactone] 25 mg PO DAILY 11/21/14 [History] Warfarin [Coumadin] 2.5 mg PO QPM 11/21/14 [History] Betaxolol 0.25% [Betoptic S] 1 drop BOTH EYES QAM 04/27/15 [History] Travoprost [Travatan Z] 1 drop BOTH EYES HS 04/27/15 [History] Furosemide [Lasix] 40 mg PO BID #60 04/29/15 [Rx] Cholecalciferol (Vitamin D3) [Vitamin D3] 5,000 unit PO DAILY 05/18/17 [History] Atorvastatin [Lipitor] 40 mg PO QPM 06/04/17 [History] Sacubitril/Valsartan 24/26 mg [Entresto 24 mg-26 mg Tablet] 1 tab PO BID #60 tablet 06/13/17 [Rx] Allergies/Adverse Reactions: 3 Allergy/AdvReac Type Severity Reaction Status Date / Time aspirin [ASA] Allergy See Verified 06/08/17 09:25 Comments Penicillins Allergy See Verified 06/08/17 09:25 Comments Tetracycline Allergy See Verified 06/08/17 09:25 Comments vancomycin Allergy See Verified 06/08/17 09:25 Comments hydrochlorothiazide AdvReac Rash Verified 06/08/17 09:25 NSAIDS (Non-Steroidal AdvReac See Verified 06/08/17 09:25 Anti-Inflamma Comments Date of admission: 06/13/17 19:49 Primary care physician: Shayla Bolanos DO Consults: 06/13/17 22:13 Consult to Occupational Therapy [CONS] Routine Comment: Eval and Treat Reason for Consult: Eval and Treat Does patient have active BEDREST order?: No Is patient medically & hemodynamically stable?: Yes Consult to Physical Therapy [CONS] Routine Comment: Eval and Treat Reason for Consult: Eval and Treat Does patient have active BEDREST order?: No Is patient medically & hemodynamically stable?: Yes Consult to Recreational Therapy [CONS] Routine Comment: Consult to Electronics Hardware Design Engineer [CONS] Routine Reason for SW Consult: Discharge Planning Discharging clinician: Jose Miguel Carrasco Anticipated date of discharge: 06/23/17 - Constitutional Vitals: Temp Pulse Resp BP Pulse Ox 98.6 F 78 16 111/77 99 06/23/17 08:04 06/23/17 08:04 06/23/17 08:04 06/23/17 08:04 06/23/17 08:04 General appearance: Present: A&O X 3, pleasant, no acute distress, answers questions appropriately - Head Head exam: Present: atraumatic, normocephalic - Eye Eye exam: Present: PERRL, conjuntiva pink, sclera anicteric Pupils: Present: PERRL - Neck Neck exam general surgery: Present: supple, trachea midline. Absent: lymphadenopathy - Respiratory Respiratory exam: Present: CTAB. Absent: accessory muscle use, rales, rhonchi, wheezes Additional comments: Lungs are diminished to [place], otherwise clear to auscultation. Respiratory effort is reline - Cardiovascular Cardiovascular exam: Present: RRR, +S1, +S2. Absent: diastolic murmur, gallop, rubs, systolic murmur - GI/Abdominal GI/Abdominal exam: Present: normal bowel sounds, soft, no peritoneal signs. Absent: distended, tenderness - Extremities Exam Extremities exam: Present: warm, radial pulses palpable and symmetrical. Absent : calf tenderness, cyanotic, pedal edema Additional comments: Slight nonpitting edema of the bilateral lower legs - Neurological Exam Neurological exam: Present: CN II-XII intact, oriented X3, no focal deficits. Absent: pronater drift, facial droop, speech deficit - Skin Skin exam: Present: dry, intact - Patient Status Disposition: Transfer Other Condition: Good Functional capacity at discharge: uses cane/walker Overall status at discharge: patient is progressing back to baseline - Discharge Instructions Instructions: COPD Exacerbation, Laboratory Technician (GEN) Follow Up With: Shayla Bolanos DO [Primary Care Provider] - 06/29/17 3:00 pm (follow up appiontment) - Diet and Activity Activity: ambulate only with your walker, as per physical therapy, resume usual activities as tolerated Diet: low fat, low cholesterol, low salt diet (transfer to Assisted Living)
--- NOTE | 2017-06-23 10:24 | Physician Discharge Referral ---
ExtendedCare Referral Info Provider in Charge after Transfer: PCP Institutional Level of Care: Skilled - Diagnosis (1) CHF (congestive heart failure) Priority: Primary Status: Acute (2) CKD (chronic kidney disease) stage 3, GFR 30-59 ml/min Priority: Secondary Status: Chronic (3) Diabetes mellitus type II, uncontrolled Priority: Secondary Status: Acute Prognosis: Good Aware of Diagnosis: Patient Aware of Prognosis: Patient - Transfer Medications Home Medications: Albuterol Sulfate [Albuterol Inhaler] 2 puff IH Q4HR PRN 11/21/14 [History] Allopurinol [Zyloprim] 100 mg PO QPM 11/21/14 [History] Beclomethasone Diprop 80mcg [QVAR 80 mcg] 1 puff IH BIDR 11/21/14 [History] Cyanocobalamin (Vitamin B-12) [Vitamin B12] 1,000 mcg PO TH 11/21/14 [History] Levothyroxine [Synthroid] 112 mcg PO QAM 11/21/14 [History] Spironolactone [Aldactone] 25 mg PO DAILY 11/21/14 [History] Warfarin [Coumadin] 2.5 mg PO QPM 11/21/14 [History] Betaxolol 0.25% [Betoptic S] 1 drop BOTH EYES QAM 04/27/15 [History] Travoprost [Travatan Z] 1 drop BOTH EYES HS 04/27/15 [History] Furosemide [Lasix] 40 mg PO BID #60 04/29/15 [Rx] Cholecalciferol (Vitamin D3) [Vitamin D3] 5,000 unit PO DAILY 05/18/17 [History] Atorvastatin [Lipitor] 40 mg PO QPM 06/04/17 [History] Sacubitril/Valsartan 24/26 mg [Entresto 24 mg-26 mg Tablet] 1 tab PO BID #60 tablet 06/13/17 [Rx] Allergies/Adverse Reactions: 3 Allergy/AdvReac Type Severity Reaction Status Date / Time aspirin [ASA] Allergy See Verified 06/08/17 09:25 Comments Penicillins Allergy See Verified 06/08/17 09:25 Comments Tetracycline Allergy See Verified 06/08/17 09:25 Comments vancomycin Allergy See Verified 06/08/17 09:25 Comments hydrochlorothiazide AdvReac Rash Verified 06/08/17 09:25 NSAIDS (Non-Steroidal AdvReac See Verified 06/08/17 09:25 Anti-Inflamma Comments - Respiratory Orders Oxygen / L per min (2 lpm prn) Smoking Cessation: Smoking cessation has been advised. For more information, call the [place] Tobacco Quit Line at 3-178-QEUW-NOW. - Ancillary Orders May use pressure relief devices daily prn - Mobility Orders Ambulate - Rehabiliation Orders Rehab Potential: Fair Rehab Orders: Evaluation for Physical Therapy, Evaluation for Occupational Therapy - Treatments Skin tear care topically daily PRN per policy, May check for fecal impaction rectally daily PRN, Fleet enema rectally every other day PRN cleansing purposes - Diet Orders No Added Salt (MAXIMINO), Cardiac CERTIFICATION: I certify that the transfer of the above named patient to an Extended Care Facility is necessary for the continuing treatment of the diagnosis listed. The above information is true and accurate reflection of patient's current condition. Confidential - Redisclosure prohibited without a patient's written consent.
== END 2017-06-23 11:47 | disposition other institution (70) | DRG 945 ==
LOC: INPGRE 19:49